=== PATIENT | male | born 1940 | race Caucasian/White ===

== ENCOUNTER 2018-09-23 09:00 | Emergency (ER) | payer MEDICAID ==
[~2018-09-23] VITALS: Ht 172.7 cm; Wt 75.0 kg
[~2018-09-23 09:00] MED LIST: ACET-2178 PO; LEVO50TA8 PO; MULT-1146 PO
[2018-09-23 12:45] VITALS: BP 125/68
== END 2018-09-23 12:53 | disposition home or self-care (01) ==
LOC: ER 09:00
DX: G93.40 Encephalopathy, unspecified (principal); F20.9 Schizophrenia, unspecified; J44.9 Chronic obstructive pulmonary disease, unspecified; F03.90 Unspecified dementia, unspecified severity, without behavioral disturbance, psychotic disturbance, mood disturbance, and anxiety; E11.9 Type 2 diabetes mellitus without complications; E78.00 Pure hypercholesterolemia, unspecified; E03.9 Hypothyroidism, unspecified
CPT/HCPCS: 99283